=== PATIENT | female | born 2000 | race Caucasian/White ===

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

== ENCOUNTER 2022-07-25 10:39 | Emergency (ER) | payer OTHER, SELFPAY ==
--- NOTE | ~2022-07-25 | XR_ITS ---
EXAMINATION: CR X-RAY THORACIC, LUMBAR AND SACRAL SPINE CLINICAL INFORMATION: Back pain status post fall. COMPARISON: None TECHNIQUE: 3 views of the thoracic spine, 2 views of the lumbar spine and 3 views of the cervical spine were obtained. FINDINGS: There is normal spinal curvature and alignment. The vertebral bodies and intervertebral disc spaces are unremarkable. There is no acute fracture. The sacroiliac joints and visualized hips are unremarkable. The visualized posterior ribs are intact. The soft tissues are unremarkable. XR/XR lumbar spine 2-3V IMPRESSION: No acute abnormality or significant degenerative changes.
--- NOTE | ~2022-07-25 | XR_ITS ---
EXAMINATION: CR X-RAY THORACIC, LUMBAR AND SACRAL SPINE CLINICAL INFORMATION: Back pain status post fall. COMPARISON: None TECHNIQUE: 3 views of the thoracic spine, 2 views of the lumbar spine and 3 views of the cervical spine were obtained. FINDINGS: There is normal spinal curvature and alignment. The vertebral bodies and intervertebral disc spaces are unremarkable. There is no acute fracture. The sacroiliac joints and visualized hips are unremarkable. The visualized posterior ribs are intact. The soft tissues are unremarkable. XR/XR sacrum coccyx min 2V IMPRESSION: No acute abnormality or significant degenerative changes.
--- NOTE | ~2022-07-25 | XR_ITS ---
EXAMINATION: CR X-RAY THORACIC, LUMBAR AND SACRAL SPINE CLINICAL INFORMATION: Back pain status post fall. COMPARISON: None TECHNIQUE: 3 views of the thoracic spine, 2 views of the lumbar spine and 3 views of the cervical spine were obtained. FINDINGS: There is normal spinal curvature and alignment. The vertebral bodies and intervertebral disc spaces are unremarkable. There is no acute fracture. The sacroiliac joints and visualized hips are unremarkable. The visualized posterior ribs are intact. The soft tissues are unremarkable. XR/XR thoracic spine 3V IMPRESSION: No acute abnormality or significant degenerative changes.
[2022-07-25 11:01] VITALS: BP 121/82; PULSE 58; RESP 16; TEMP 36.4; O2SAT 100; BMI 26.6
[2022-07-25] MEDS: Cyclobenzaprine HCl 5 MG TABLET PO (14:47)
[2022-07-25] MEDS: Ketorolac Tromethamine 30 MG/ML VIAL IM (14:47)
[2022-07-25 15:09] VITALS: BP 119/68; PULSE 59; RESP 18; O2SAT 100
--- NOTE | 2022-07-25 15:36 | ED.BACK ---
HPI - Back Pain/Injury General Chief Complaint: Back Pain/Injury Stated Complaint: Fall/Back pain Time Seen by Provider: 07/25/22 12:26 Source: patient Mode of arrival: ambulatory History of Present Illness HPI Narrative: 22 year old female with no PMHx presents to the ED with complaints of back pain that began after she was accidentally dropped onto cement stairs on Sunday. States hit the stairs with her back and since has had tightness, w/pain radiating from tailbone to buttock/back. Admits pain worse with bending, prolonged standing or laying down. Went to [facility] ED on Sunday for same complaint, Rx one Lidocaine patch w/o relief. Denies headache, dizziness, LOC, fever, chills, parasthesias, bladder incontinence/retention, or change in bowel habits. MD elicited complaint: back pain Onset (ago): day(s) Related Data Previous Rx's Medication Instructions Recorded acetaminophen 500 mg tablet 500 mg PO Q6H PRN fever or pain 07/25/22 (Tylenol Extra Strength) #14 tabs cyclobenzaprine 5 mg tablet 5 mg PO Q8H PRN pain (scale score 07/25/22 7-10) 5 days #14 tabs lidocaine 5 % topical patch 1 patch topical DAILY PRN pain #30 07/25/22 (Lidoderm) ea naproxen 500 mg tablet 500 mg PO BID PRN pain 10 days #20 07/25/22 tabs Allergies Allergy/AdvReac Type Severity Reaction Status Date / Time No Known Allergies Allergy Verified 07/25/22 11:10 Review of Systems Review of Systems: Constitutional: No Weight loss, No Fever, No Chills ENT/Mouth: No Ear Pain, No Nasal Congestion, No sore throat, No Rhinorrhea, No Swallowing Difficulty Cardiovascular: No Chest Pain, No SOB Respiratory: No Cough, No Sputum, No Wheezing Gastrointestinal: No Nausea, No Vomiting, No Diarrhea, No Constipation, No Abdominal pain Genitourinary: No Dysuria, No Urinary Frequency, No Hematuria, No Urinary Incontinence/retention Musculoskeletal: + joint pain, + Myalgias, + Joint Swelling Skin: No Skin Lesions, No rash Neuro: No Weakness, No Numbness, No Paresthesias Yes all other systems are reviewed and are negative Constitutional: Constitutional: Reports as per HPI Neurologic: Denies Sensory deficit (Neuro) [facility] Past Medical History Attestation statement: The following information was validated with the patient. Social History Social History Advance Directives: No Advance Directives Information Provided: No Physical Exam Vital Signs: Vital Signs: Last Vital Signs Temp 97.6 F 07/25/22 11:01 Pulse 59 07/25/22 15:09 Resp 18 07/25/22 15:09 BP 119/68 07/25/22 15:09 Pulse Ox 100 07/25/22 15:09 O2 Del Method 07/25/22 15:09 BMI result Body Mass Index 26.6 Const: General: cooperative, healthy appearing and no acute distress Orientation/consciousness: patient oriented x3 Limitations: no limitations HEENT: Head: Yes normal to inspection and Yes atraumatic Ears: hearing grossly normal bilaterally General nose exam: Normal external nose present Face and sinus: Yes normal facial exam Eyes: General: appearance normal, both eyes and all related structures EOM: EOMs intact bilaterally Neck: Neck: Yes normal visual inspection and Yes no meningeal signs Resp: Effort & Inspection: normal respiratory effort and no respiratory distress Cardio: Rate: regular rate Heart sounds: S1 normal heart sound present and S2 normal heart sound present GI: Inspection: Yes normal to inspection Palpation (GI): Soft to palpation, nontender, no guarding and not rigid : General: Yes no CVA tenderness Back/Spine/Pelvis: Other: No midline thoracic/lumbar spinous tenderness/step-off or deformity. + bilateral lower thoracic and lumbar paraspinal tenderness and palpable muscle spasming Back: no CVA tenderness Skin: General skin exam: no rashes or lesions noted Rashes: no rashes Trauma: no lacerations or abrasions Wounds: no wounds Neuro: Other: Strength intact throughout. No saddle anesthesia. Sensation intact to light touch. Neurovascular intact distally General: patient oriented x3, gait normal, tone normal, moves all extremities, Normal light touch and pain sensation and no meningeal signs Gait exam (Neuro): Normal gait present Motor exam (neuro): 5/5 motor strength present throughout and Motor abnormalities not present Sensory Exam: No Sensory deficit (Neuro) Extrem: General: Yes normal to inspection and Yes full ROM Right upper extremity: normal to inspection Left upper extremity: normal to inspection Right lower extremity: normal to inspection Left lower extremity: normal to inspection Psych: Appearance: grossly normal Mental Status: mental status grossly normal Speech and movement: Normal speech and movement present Affect: normal affect Attitude: cooperative Thought process: Normal thought process present Thought content: Normal thought content present Insight: Good insight present (Psych) Judgement: Good judgement present (Psych) Course Course Course Narrative: XR thoracic spine 3V IMPRESSION: No acute abnormality or significant degenerative changes. XR lumbar spine 2-3V IMPRESSION: No acute abnormality or significant degenerative changes. XR sacrum coccyx min 2V IMPRESSION: No acute abnormality or significant degenerative changes. Results discussed with patient including worrisome signs and symptoms and strict return precautions, and when to return to the emergency department. They verbalized understanding and feel safe for discharge at this time. Medications Administered Discontinued Medications Generic Name Dose Route Start Last Admin Trade Name Freq PRN Reason Stop Dose Admin Cyclobenzaprine HCl 5 mg 07/25/22 13:08 07/25/22 14:47 Cyclobenzaprine Hcl 5 Mg Tablet PO 07/25/22 13:09 5 mg ONCE ONE Administration Ketorolac Tromethamine 30 mg 07/25/22 13:08 07/25/22 14:47 Ketorolac Tromethamine 30 Mg/Ml Vial IM 07/25/22 13:09 30 mg ONCE ONE Administration Medical Decision Making Medical Decision Making [facility] Narrative: 22 year old female with no PMHx presents to the ED with complaints of back pain that began after she was accidentally dropped onto cement stairs on Sunday. On exam vital signs stable, NAD, nontoxic appearing, no midline spinous tenderness through or red flag symptoms. Ambulating with steady gait. Concern for subacute fracture vs MSK pain/strain vs muscle spasming. Low suspicion for cauda equina, cord compression, epidural abscess, no evidence of infection. Low suspicion for renal stone/pyelo Plan: X-rays, pain control Differential Diagnosis Differential Diagnoses: The differential diagnosis associated with the presentation includes As above Radiology Impression Discussion of test interpretation with radiology: I have reviewed the radiologist's reading. Prescription Management I considered prescription management with: Pain Medication Discharge Plan Discharge Clinical Impression: Back pain Patient Disposition: Home, Self-Care Instructions: Acute Low Back Pain (ED) Additional Instructions: Your pain is likely musculoskeletal Flexeril is a muscle relaxer, take at night as it makes you drowsy, do not drive, drink alcohol, or operate machinery while taking it Naproxen as an anti-inflammatory / pain medication, take with food Lidoderm patches are numbing patches, apply to painful area In addition take Tylenol at home If symptoms persist or worsen, pain becomes unbearable, you developed urinary retention or incontinence, or weakness return to the ED Prescriptions: New acetaminophen [Tylenol Extra Strength] 500 mg tablet 500 mg PO Q6H PRN (Reason: fever or pain) Qty: 14 0RF lidocaine [Lidoderm] 5 % adhesive patch,medicated 1 patch topical DAILY MDD remove after 12 hours PRN (Reason: pain) Qty: 30 0RF Rx Instructions: leave on most painful area for up to 12 hrs naproxen 500 mg tablet 500 mg PO BID PRN (Reason: pain) 10 Days Qty: 20 0RF cyclobenzaprine 5 mg tablet 5 mg PO Q8H PRN (Reason: pain (scale score 7-10)) 5 Days Qty: 14 0RF Referrals: Physician,None [Primary Care Provider] - Stand Alone Forms: Work/School Release Interventions: ED Discharge Assessment Last Done: 07/25/22 15:52 Discharge Date/Time: 07/25/22 15:52
== END 2022-07-25 15:52 | disposition home or self-care (01) ==
PROVIDERS: Emergency Provider Emergency Medicine
DX: M54.50 Low back pain, unspecified (principal); M54.6 Pain in thoracic spine; Z79.899 Other long term (current) drug therapy
CPT/HCPCS: 72072; 72100; 72220; 96372; 99283; 99284; J1885